=== PATIENT | male | born 1945 | race Caucasian/White ===

== ENCOUNTER 2019-06-11 15:12 | Emergency (ER) | payer MEDICARE, OTHER, SELFPAY ==
--- NOTE | ~2019-06-11 | CT_ITS ---
EXAMINATION: CT abdomen pelvis w con DATE: 06/11/2019 18:52 INDICATION: Abdominal pain TECHNIQUE: Computed tomography (CT) of the abdomen and pelvis was performed with 100 cc Omnipaque 350 intravenous contrast. The dose-length product was 554.62 mGy-cm. Automated exposure control and iter ative reconstruction technique were employed. COMPARISON: CT dated 12/29/2017 FINDINGS: Lung bases are unremarkable. Heart size normal. No significant pleural or pericardial effus ion. Moderate size hiatal hernia. There is fluid throughout the small bowel and colon. No definite ob struction. There are areas of small bowel wall enhancement. No free air or free fluid. Small subcenti meter hypodensities of the liver, most likely benign cysts or hemangiomas. The spleen, pancreas, adre nal glands are unremarkable. There are stable subcentimeter hypodensities of the kidneys, most likely benign. There is a nonobstructing 4 mm left renal stone. There is atherosclerosis of the aorta without aneurysm. Small amount of free fluid in the pelvis. Pro state gland is enlarged. Mild lumbar spondylosis. IMPRESSION: 1. Fluid-filled distended small bowel and colon, likely enterocolitis. No definite obstruction. 2: Moderate size hiatal hernia. 3: Nonobstructing left renal stone measuring 4 mm. Reviewed, dictated and finalized at location [facility]. ORT SECURITY SCREENER IMPRESSION: 1. Fluid-filled distended small bowel and colon, likely enterocolitis. No defin ite obstruction. 2: Moderate size hiatal hernia. 3: Nonobstructing left renal stone measuring 4 mm.
[2019-06-11 15:17] VITALS: BP 121/88; PULSE 78; RESP 16; TEMP 36.6; O2SAT 100
[2019-06-11 15:32] LABS: Basophils Percent Auto 0.4 % (0.2-1.2); Eosinophils Absolute Auto 0.1 K/mm3 (0-0.3); Eosinophils Percent Auto 0.9 % (0-4.4); Hematocrit 45.8 % (42.0-52.0); Hemoglobin 15.7 g/dL (14.0-18.0); Immature Granulocyte Absolute 0.04 K/mm3 (0.00-0.031); Immature Granulocyte Percent A 0.4 % (0-0.5); Lymphocytes Absolute Auto 1.32 K/mm3 (0.9-3.2); Lymphocytes Percent Auto 12.7 % (18.3-44.2); Mean Corpuscular HGB Conc 34.3 g/dl (32-36); Mean Corpuscular Hemoglobin 30.1 pg (26-34); Mean Corpuscular Volume 87.7 fl (80-100); Mean Platelet Volume 9.9 fl (7.4-10.4); Monocytes Absolute Auto 0.7 K/mm3 (0.1-0.6); Monocytes Percent Auto 6.5 % (2.6-8.5); Neutrophils Absolute Auto 8.2 K/mm3 (1.3-6.7); Neutrophils Percent Auto 79.1 % (45.5-73.1); Platelet Count Result 171 k/mm3 (150-375); Red Blood Count 5.22 M/mm3 (4.6-6.20); Red Cell Distribution Width 12.7 % (11.5-14.5); White Blood Count 10.4 K/mm3 (4.5-10.0)
[2019-06-11 15:43] LABS: Alanine Aminotransferase 21 U/L (4-50); Albumin Level 4.7 g/dL (3.5-5.1); Alkaline Phosphatase 86 U/L (38-126); Aspartate Amino Transferase 24 U/L (17-59); Bilirubin,Total 1.3 mg/dL (0.2-1.3); Blood Urea Nitrogen 16 mg/dL (9-20); Calcium 9.9 mg/dL (8.4-10.2); Carbon Dioxide 22 mmol/L (22-30); Chloride 103 mmol/L (98-107); Estimated CRCL calculation 77 ml/min; Estimated Glomerular Filt Rate > 60; Glucose 102 mg/dL (75-110); Lipase 53 U/L (23-300); Potassium 4.1 mmol/L (3.4-5.0); Sodium 139 mmol/L (137-145)
[2019-06-11 16:23] LABS: Add Urine Microscopic? NO; Appearance Urine Clear (Clear); Bilirubin Urine Negative (Negative); Blood Urine Negative (Negative); Color Urine Yellow (Yellow); Glucose Urine UA Negative (Negative); Ketones Urine Negative (Negative); Leukocyte Esterase Ur Negative LEU/UL (Negative); Nitrate Urine Negative (Negative); Protein Urine Negative (Negative); Specific Grav Ur 1.016 (1.001-1.035); Urobilinogen Urine Negative mg/dL (<2.0)
--- NOTE | 2019-06-11 17:13 | ED.ABDPAIN ---
HPI - Abdominal Pain General Chief Complaint: Abdominal Pain Stated Complaint: lower back pain and abdominal pain Time Seen by Provider: 06/11/19 17:11 Source: patient Mode of arrival: ambulatory Limitations: no limitations History of Present Illness HPI narrative: The pt is a 74 y/o male who presents to the ED c/o lower ABD pain onset 1000 today. Pt states that the pain radiated to the back. He notes that he has a PMHx of kidney stones. Pt states that he went to the bathroom here for a urine sample, and then experienced N/V, which alleviated the pain. The pain is now resolved. The pt denies constipation, diarrhea, dysuria, hematuria, and fever. Pt states that he has a PMHx of hernia x2 with two repairs performed. Pt notes that his hand presser is Dr. Ferrell. He states that he was formerly on Brilinta due to his PMHx of ND, but is now off of this medication. He notes that he last ate a meal at 2100 yesterday. MD elicited complaint: abdominal pain Pertinent past history: kidney stones Onset (ago): hour(s) (7) Pain Consistency: now resolved Location: other (Lower) Associated symptoms: nausea and vomiting Related Data Home Medications Medication Instructions Recorded Confirmed aspirin 81 mg tablet,delayed 81 mg PO DAILY 04/21/19 release atorvastatin 80 mg tablet 80 mg PO DAILY 04/21/19 carvedilol 12.5 mg tablet 12.5 mg PO BID tablet 04/21/19 doxazosin 8 mg tablet 8 mg PO DAILY 04/21/19 lisinopril 40 mg tablet 40 mg PO DAILY 04/21/19 nifedipine 30 mg tablet,extended 30 mg PO DAILY 04/21/19 release spironolactone 25 mg tablet 25 mg PO DAILY 04/21/19 Allergies Allergy/AdvReac Type Severity Reaction Status Date / Time Penicillins Allergy Unknown Unknown Verified 06/11/19 18:33 shrimp Allergy Unknown Vomiting Verified 06/11/19 18:33 Shrimp Allergy Mild Vomiting Uncoded 06/11/19 18:33 Review of Systems Review of Systems: All systems reviewed & are unremarkable except as noted in HPI and below Constitutional: Constitutional: Denies fever(s) Gastrointestinal: Gastrointestinal: Reports abdominal pain (Lower, Radiating into back, resolved), Denies constipation, Reports nausea and Reports vomiting Genitourinary: Genitourinary: Denies hematuria and Denies dysuria [facility] Past Medical History Medical History (Updated 06/11/19 @ 20:32 by Jaci Baptiste MD) Benign mole Chin, removed CAD (coronary artery disease) GERD (gastroesophageal reflux disease) Hiatal hernia x2 HLD (hyperlipidemia) HTN (hypertension) Hydrocele Kidney stone x2 Myocardial infarction Prostate nodule Surgical History Surgical History (Updated 06/11/19 @ 17:40 by Glen Prakash) History of extraction of renal calculus History of prostate surgery Nodule removal History of repair of hiatal hernia x2 Hx of cardiac cath S/P repair of hydrocele Stented coronary artery Family History Family History (Updated 01/21/19 @ 08:55 by DOCTOR UNKNOWN) Father Acute myocardial infarction Mother Family history of malignant neoplasm of ovary Other Family history of coronary artery disease Social History Social History Smoking status: Never smoker Second hand tobacco smoke exposure: No Alcohol intake: never Gender identity (if verbalized by the patient): Male Comments PCP: Dr. Manzo Cardiology: Dr. Ferrell Exam Narrative: Exam Narrative: General appearance: Well-developed, well-nourished Skin: Normal color Head: Normocephalic, nontraumatic Eyes: Clear conjunctiva ENT: Oropharynx normal, ears normal, nose normal Neck: Supple, nontender Chest and respiratory: Airway patent, no respiratory distress, no accessory muscle use Heart: Regular rate/rhythm Abdomen: Soft, nontender, no organomegaly, quiet bowel sounds Vascular: Normal peripheral pulses, normal capillary refill. Musculoskeletal: Normal range of motion, nontender back Neurologic: Alert and oriented ?3, SPECIFICATION MANAGER is normal as tested, no gross motor deficit
[2019-06-11 18:30] VITALS: BP 129/79; PULSE 67; PULSE 70; RESP 17; O2SAT 100
== END 2019-06-11 20:56 | disposition home or self-care (01) ==
PROVIDERS: Emergency Medicine; Emergency Provider Emergency Medicine; PCP Family Medicine
DX: K44.9 Diaphragmatic hernia without obstruction or gangrene (principal); I25.2 Old myocardial infarction; I25.10 Atherosclerotic heart disease of native coronary artery without angina pectoris; K21.9 Gastro-esophageal reflux disease without esophagitis; E78.5 Hyperlipidemia, unspecified; I10 Essential (primary) hypertension; Z95.5 Presence of coronary angioplasty implant and graft; N20.0 Calculus of kidney; Z87.442 Personal history of urinary calculi
CPT/HCPCS: 36415; 74177; 80053; 81003; 83690; 85025; 99284; Q9967

== ENCOUNTER 2019-12-25 18:20 | Emergency (ER) | payer MEDICARE, OTHER, SELFPAY ==
--- NOTE | ~2019-12-25 | XR_ITS ---
XR abdomen/kub 1V DATE: 12/25/2019 21:09 INDICATION: Left flank pain, nausea, vomiting. Left ureterovesical junction calculus TECHNIQUE: AP projection, 2 views COMPARISON: 12/25/[address] abdomen pelvis FINDINGS: There is a faint approximately 3 mm calcification overlying the left lower pelvis, possibly corresponding to the left are visible junction calculus demonstrated on the 12/25/[address] abdomen pelvis. Nonspecific bowel gas pattern without evidence of obstruction. Status post right inguinal herniorrhaphy. Diffuse osteopenia. IMPRESSION: Probable faintly calcified left ureterovesical junction approximately 3 mm calcified calc ulus Reviewed, dictated and finalized at [facility]. Reviewed, dictated and finalized at location [facility]. IMPRESSION: Probable faintly calcified left ureterovesical junction approximate ly 3 mm calcified calculus
--- NOTE | ~2019-12-25 | CT_ITS ---
EXAMINATION: CT abdomen pelvis wo con DATE: 12/25/2019 20:58 INDICATION: Left flank pain TECHNIQUE: Computed tomography (CT) of the abdomen and pelvis was performed without intravenous contr ast. Automated exposure control and iterative reconstruction technique were employed. Exam dose: 463 .83 mGy-cm total exam DLP. COMPARISON: 06/11/[address] abdomen pelvis FINDINGS: There is discoid atelectasis and/or scarring in the lower lung zones. Borderline heart size. Coronary artery extensive calcifications. No pericardial or pleural effusion. Moderate hiatal hernia. Scattered hepatic cysts measuring up to approximately 1.5 cm maximal dimensio n are again noted. The gallbladder is present. Normal splenic size. No bile duct or pancreatic duct d ilatation. No pancreatic mass lesion or calcification. No adrenal mass lesion. No right renal mass lesion. No right urinary tract calculus or hydroureterone phrosis. There is an approximately 4 mm left ureterovesical junction calculus with mild left hydroureteronephr osis. There is perinephric stranding. There are several pinpoint lower pole nonobstructing left renal calculi. Moderate prostate enlargement. There is atherosclerotic calcification but no aneurysm of the abdominal aorta. There is calcification of the celiac and superior mesenteric and renal arteries as well as iliac arteries. No intraperitone al or retroperitoneal or pelvic mass lesion or adenopathy or ascites. Unremarkable appendix. Status post right inguinal herniorrhaphy. Diverticulosis of the colon; no CT evidence of diverticulitis. No bowel obstruction, bowel wall thick ening, pneumatosis or intraperitoneal free air. Prominent degenerative disease and approximately 3.6 mm retrolisthesis at L5-S1. 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 IMPRESSION: 4 mm left ureterovesical junction obstructing calculus with mild proximal left hydrouret eronephrosis Nonobstructing lower pole left nephrolithiasis Moderate hiatal hernia Hepatic cysts Extensive coronary artery calcifications Reviewed, dictated and finalized at [facility]. Reviewed, dictated and finalized at [facility]. IMPRESSION: 4 mm left ureterovesical junction obstructing calculus with mild p roximal left hydroureteronephrosis Nonobstructing lower pole left nephrolithiasis Moderate hiatal hernia Hepatic cysts Extensive coronary artery calcifications
[2019-12-25 19:10] VITALS: BP 142/108; PULSE 95; RESP 18; TEMP 37; O2SAT 98
[2019-12-25 19:25] LABS: Basophils Percent Auto 0.1 % (0.2-1.2); Hemoglobin 13.5 g/dL (14.0-18.0); Immature Granulocyte Absolute 0.03 K/mm3 (0.00-0.031); Immature Granulocyte Percent A 0.3 % (0-0.5); Lymphocytes Absolute Auto 0.49 K/mm3 (0.9-3.2); Lymphocytes Percent Auto 4.4 % (18.3-44.2); Mean Corpuscular HGB Conc 34.6 g/dl (32-36); Mean Corpuscular Hemoglobin 30.5 pg (26-34); Mean Platelet Volume 9.5 fl (7.4-10.4); Monocytes Absolute Auto 0.7 K/mm3 (0.1-0.6); Monocytes Percent Auto 6.5 % (2.6-8.5); Neutrophils Absolute Auto 9.9 K/mm3 (1.3-6.7); Neutrophils Percent Auto 88.7 % (45.5-73.1); Platelet Count Result 142 k/mm3 (150-375); Red Blood Count 4.43 M/mm3 (4.6-6.20); Red Cell Distribution Width 12.8 % (11.5-14.5); White Blood Count 11.2 K/mm3 (4.5-10.0)
[2019-12-25 19:37] LABS: Anion Gap 7 mmol/L (8-16); Blood Urea Nitrogen 19 mg/dL (9-20); Carbon Dioxide 23 mmol/L (22-30); Chloride 110 mmol/L (98-107); Estimated CRCL calculation 54 ml/min; Estimated Glomerular Filt Rate 54; Glucose 142 mg/dL (75-110); Potassium 3.8 mmol/L (3.4-5.0); Sodium 140 mmol/L (137-145)
--- NOTE | 2019-12-25 20:14 | ED.ABDPAIN ---
HPI - Abdominal Pain General Chief Complaint: Abdominal Pain Stated Complaint: abd/flank pain Time Seen by Provider: 12/25/19 19:51 Source: patient Mode of arrival: ambulatory Limitations: no limitations History of Present Illness HPI narrative: This patient is a 74 year old male who presents for evaluation of left flank pain starting last night around 10 pm. He has had kidney stones in the past and this pain feels similar. He reports severe pain that radiated around left lower abdomen. He had associated nausea and vomiting last night and this morning. His pain has improved to 2/10. He reports mild dysuria. He denies fever or chills. He has not taken any medication for his pain today His urologist is Dr. Green Related Data Home Medications Medication Instructions Recorded Confirmed aspirin 81 mg tablet,delayed 81 mg PO DAILY 04/21/19 release atorvastatin 80 mg tablet 80 mg PO DAILY 04/21/19 carvedilol 12.5 mg tablet 12.5 mg PO BID tablet 04/21/19 doxazosin 8 mg tablet 8 mg PO DAILY 04/21/19 lisinopril 40 mg tablet 40 mg PO DAILY 04/21/19 nifedipine 30 mg tablet,extended 30 mg PO DAILY 04/21/19 release spironolactone 25 mg tablet 25 mg PO DAILY 04/21/19 Allergies Allergy/AdvReac Type Severity Reaction Status Date / Time Penicillins Allergy Unknown Unknown Verified 12/25/19 20:34 shrimp Allergy Unknown Vomiting Verified 12/25/19 20:34 Shrimp Allergy Mild Vomiting Uncoded 12/25/19 20:34 Review of Systems Review of Systems: All systems reviewed & are unremarkable except as noted in HPI and below Constitutional: Constitutional: Denies chills and Denies fever(s) Gastrointestinal: Gastrointestinal: Reports abdominal pain, Denies diarrhea, Reports nausea and Reports vomiting Genitourinary: Genitourinary: Denies hematuria and Denies oliguria Musculoskeletal: Musculoskeletal: Reports back pain PMFSH Past Medical History Medical History Benign mole Chin, removed CAD (coronary artery disease) GERD (gastroesophageal reflux disease) Hiatal hernia x2 HLD (hyperlipidemia) HTN (hypertension) Hydrocele Kidney stone x2 Myocardial infarction Prostate nodule Surgical History Surgical History History of extraction of renal calculus History of prostate surgery Nodule removal History of repair of hiatal hernia x2 Hx of cardiac cath S/P repair of hydrocele Stented coronary artery Family History Family History (Updated 01/21/19 @ 08:55 by DOCTOR UNKNOWN) Father Acute myocardial infarction Mother Family history of malignant neoplasm of ovary Other Family history of coronary artery disease Social History Social History Smoking status: Never smoker Second hand tobacco smoke exposure: No Alcohol intake: never Gender identity (if verbalized by the patient): Male Exam Const: General: alert Orientation/consciousness: patient oriented x3 HENMT: Head: normocephalic and atraumatic Face and sinus: face symmetric Mouth: Yes Normal oral and palatal mucosa present and Yes oropharynx normal Eyes: Pupils: Equal, round and reactive pupils present EOM: EOMs intact bilaterally Chest: Chest palpation & inspection: normal inspection of the chest Resp: Effort & Inspection: normal respiratory effort, no retractions and no use of accessory muscles Auscultation: clear to auscultation bilaterally Cardio: Rate: regular rate Rhythm: regular rhythm Heart sounds: no murmurs GI: GI Palp: Yes Soft to palpation, No Tenderness to palpation present (GI), No Guarding due to palpation present (GI) and No Rigid due to palpation : General: Yes no CVA tenderness Skin: General skin exam: normal color Rashes: no rashes Course Reevaluation(s) Reevaluation #1: I discussed with patient Ct results. He has no complaints and he is comfortable with discharge. Date: 12/25/19
[2019-12-25] MEDS: ONDANSETRON INJ 4 MG/2 ML VIAL IV PUSH (20:34)
[2019-12-25] MEDS: LACTATED RINGERS 1,000 ML 999 ML IV CONT (20:34)
[2019-12-25 20:48] LABS: Add Urine Microscopic? YES; Appearance Urine Cloudy (Clear); Bacteria Urine 1+ /hpf; Bilirubin Urine Negative (Negative); Blood Urine 3+ (Negative); Color Urine Red (Yellow); Glucose Urine UA 1+ mg/dL (Negative); Ketones Urine 1+ mg/dL (Negative); Leukocyte Esterase Ur Trace LEU/UL (Negative); Mucus Urine Moderate /lpf; Nitrate Urine Negative (Negative); Protein Urine 2+ mg/dL (Negative); RBC Urine >75 /hpf (0-2); Specific Grav Ur 1.025 (1.001-1.035); Urobilinogen Urine Negative mg/dL (<2.0)
[2019-12-25] MEDS: TAMSULOSIN HCL 0.4 MG CAPSULE PO (21:51)
[2019-12-25 22:38] VITALS: BP 139/91; PULSE 87; RESP 16; TEMP 36.6; O2SAT 100
== END 2019-12-25 22:40 | disposition home or self-care (01) ==
PROVIDERS: Emergency Provider General Practice; PCP Family Medicine
DX: N13.2 Hydronephrosis with renal and ureteral calculous obstruction (principal); N39.0 Urinary tract infection, site not specified; I25.10 Atherosclerotic heart disease of native coronary artery without angina pectoris; K21.9 Gastro-esophageal reflux disease without esophagitis; E78.5 Hyperlipidemia, unspecified; I10 Essential (primary) hypertension; I25.2 Old myocardial infarction; Z87.442 Personal history of urinary calculi; Z95.5 Presence of coronary angioplasty implant and graft; Z79.82 Long term (current) use of aspirin
CPT/HCPCS: 36415; 74018; 74176; 80048; 81001; 85025; 87077; 87086; 87088; 87186; 96361; 96365; 96375; 99284; A9270; J0131; J2405; J7120

== ENCOUNTER 2022-05-13 11:21 | Emergency (ER) | payer MEDICARE, OTHER, SELFPAY ==
--- NOTE | ~2022-05-13 | CT_ITS ---
EXAMINATION: CT abdomen pelvis wo con DATE: 05/13/2022 13:14 INDICATION: Left flank pain. TECHNIQUE: Computed tomography (CT) of the abdomen and pelvis was performed without intravenous contr ast. Automated exposure control and iterative reconstruction technique were employed. The dose-length product was 279.40 mGy-cm. COMPARISON: CT abdomen and pelvis 12/25/2019 FINDINGS: The visualized portions of the lung bases demonstrate mild atelectasis. There is mild scarr ing in paraspinal right lower lobe. No pleural effusion. The heart size is normal. There are coronary artery calcifications. There are calcifications of aortic valve. No pericardial effusion. There is a moderate-sized sliding hiatal hernia. There are cysts in the liver measuring up to 1.9 cm. The gallb ladder and spleen are normal. The pancreas and adrenal glands are normal. There is a 2 mm stone in ri ght kidney. There are 4 stones in left kidney measuring up to 4 mm. There is mild left hydronephrosis and hydroureter. There is a 4 mm stone in distal left ureter. There is asymmetric edema around left kidney. The prostate is moderately enlarged. There is diverticulosis of the colon without evidence of diverticulitis. There are no dilated loops of bowel. The appendix is normal. There are no pathologic ally enlarged lymph nodes. There is no free intraperitoneal fluid. There are changes of right inguina l hernia repair. There is severe lower lumbar spondylosis. IMPRESSION: 1. 4 mm stone in distal left ureter with mild left hydronephrosis and hydroureter. 2. Bilateral nonobstructing kidney stones. 3. Moderate-sized sliding hiatal hernia. Reviewed, dictated and finalized at location [facility]. LE DIRECTOR IMPRESSION: 1. 4 mm stone in distal left ureter with mild left hydronephrosis and hydrouret er. 2. Bilateral nonobstructing kidney stones. 3. Moderate-sized sliding hiatal hernia.
[2022-05-13 12:12] VITALS: BP 185/135; PULSE 84; RESP 18; TEMP 36.9; O2SAT 97
[2022-05-13 12:33] LABS: Basophils Percent Auto 0.3 % (0.2-1.2); Eosinophils Percent Auto 0.1 % (0-4.4); Hematocrit 42.4 % (42.0-52.0); Hemoglobin 14.6 g/dL (14.0-18.0); Immature Granulocyte Absolute 0.02 K/mm3 (0.00-0.031); Immature Granulocyte Percent A 0.2 % (0-0.5); Lymphocytes Absolute Auto 0.85 K/mm3 (0.9-3.2); Lymphocytes Percent Auto 9.7 % (18.3-44.2); Mean Corpuscular HGB Conc 34.4 g/dl (32-36); Mean Corpuscular Hemoglobin 30.4 pg (26-34); Mean Corpuscular Volume 88.3 fl (80-100); Mean Platelet Volume 9.6 fl (7.4-10.4); Monocytes Absolute Auto 0.5 K/mm3 (0.1-0.6); Monocytes Percent Auto 5.3 % (2.6-8.5); Neutrophils Absolute Auto 7.4 K/mm3 (1.3-6.7); Neutrophils Percent Auto 84.4 % (45.5-73.1); Platelet Count Result 151 k/mm3 (150-375); White Blood Count 8.7 K/mm3 (4.5-10.0)
[2022-05-13 12:40] LABS: Appearance Urine Clear (Clear); Bilirubin Urine Negative (Negative); Blood Urine 3+ (Negative); Color Urine Yellow (Yellow); Glucose Urine UA Negative (Negative); Ketones Urine Trace mg/dL (Negative); Leukocyte Esterase Ur Negative LEU/UL (Negative); Nitrate Urine Negative (Negative); Protein Urine 1+ mg/dL (Negative); Specific Grav Ur 1.025 (1.001-1.035); Urobilinogen Urine 0.2 mg/dL (<2.0); pH Urine 5.5 (5.0-9.0)
[2022-05-13 12:42] LABS: Alanine Aminotransferase 27 U/L (6-50); Albumin Level 4.3 g/dL (3.5-5.1); Alkaline Phosphatase 87 U/L (38-126); Anion Gap 6 mmol/L (8-16); Aspartate Amino Transferase 26 U/L (17-59); Bilirubin,Total 1.3 mg/dL (0.2-1.3); Blood Urea Nitrogen 15 mg/dL (9-20); Calcium 9.1 mg/dL (8.4-10.2); Carbon Dioxide 24 mmol/L (22-30); Chloride 113 mmol/L (98-107); Estimated CRCL calculation 52 ml/min; Estimated Glomerular Filt Rate 54; Glucose 125 mg/dL (65-110); Sodium 143 mmol/L (137-145)
--- NOTE | 2022-05-13 12:51 | ED.ABDPAIN ---
HPI - Abdominal Pain General Chief Complaint: Abdominal Pain Stated Complaint: back pain, n/v Time Seen by Provider: 05/13/22 12:03 History of Present Illness HPI narrative: Patient is a 77-year-old male with a history of hypertension, hyperlipidemia, GERD presenting with left flank pain. Patient states that he awoke around 5 this morning with severe left flank pain. States that it feels like prior episodes of kidney stones. States that the pain has been persistent since this morning and he then developed numerous episodes of emesis around 8 AM. States that he was able to have a small bowel movement which did not improve the pain. States he was able to urinate a small amount after the pain started. No hematuria or dysuria. No fevers or chills, headache, chest pain, shortness of breath, diarrhea, leg swelling. Related Data Home Medications Medication Instructions Recorded Confirmed aspirin 81 mg tablet,delayed 81 mg PO DAILY 04/21/19 release (Aspir-Low) atorvastatin 80 mg tablet 80 mg PO DAILY 04/21/19 carvedilol 12.5 mg tablet 12.5 mg PO BID 04/21/19 lisinopril 40 mg tablet 40 mg PO DAILY 04/21/19 nifedipine 30 mg tablet,extended 30 mg PO DAILY 04/21/19 release spironolactone 25 mg tablet 25 mg PO DAILY 04/21/19 Allergies Allergy/AdvReac Type Severity Reaction Status Date / Time Penicillins Allergy Unknown Unknown Verified 05/13/22 12:22 shrimp Allergy Unknown Vomiting Verified 05/13/22 12:22 Review of Systems Review of Systems: All systems reviewed & are unremarkable except as noted in HPI and below PMFSH Past Medical History Medical History (Updated 05/14/22 @ 00:04 by Dariela Tee) Benign mole Chin, removed CAD (coronary artery disease) GERD (gastroesophageal reflux disease) Hiatal hernia x2 HLD (hyperlipidemia) HTN (hypertension) Hydrocele Kidney stone x2 Myocardial infarction Prostate nodule Surgical History Surgical History History of extraction of renal calculus History of prostate surgery Nodule removal History of repair of hiatal hernia x2 Hx of cardiac cath S/P repair of hydrocele Stented coronary artery Family History Family History Father Acute myocardial infarction Mother Family history of malignant neoplasm of ovary Other Family history of coronary artery disease Social History Social History Smoking status: Never smoker Second hand tobacco smoke exposure: No Alcohol intake: never Gender identity (if verbalized by the patient): Male Exam Narrative: GENERAL: Uncomfortable appearing male lying in bed HEAD: Normocephalic, atraumatic. EYES: PERRLA and EOMI. ENT: Nares clear, no rhinorrhea or epistaxis. Mucous membranes moist. NECK: Supple. CHEST: Clear to auscultation. No respiratory distress. HEART: Regular rate and rhythm. ABDOMEN: Soft, nontender, nondistended EXTREMITIES: Normal range of motion. No edema. SKIN: Warm, dry, no rash. NEURO: No focal deficits. Alert and oriented x3. PSYCH: Normal mood and affect. Course Vital Signs Vital signs: Vital Signs Temperature 98.4 F 05/13/22 12:12 Pulse Rate 84 05/13/22 12:12 Respiratory Rate 18 05/13/22 12:12 Blood Pressure 185/135 H 05/13/22 12:12 Pulse Oximetry 97 05/13/22 12:12 Oxygen Delivery Room Air 05/13/22 12:12 Temperature 98.4 F 05/13/22 12:12 Pulse Rate 89 05/13/22 15:26 Respiratory Rate 18 05/13/22 15:26 Blood Pressure 149/93 H 05/13/22 15:26 Pulse Oximetry 97 05/13/22 15:26 Oxygen Delivery Room Air 05/13/22 12:12 MDM - Abdominal Pain MDM Narrative Medical decision making narrative: Patient is a 77-year-old male presenting with left flank pain and emesis. Patient is hypertensive, his vitals are within normal limits. Exam is remarkable for the above. B
[2022-05-13 12:56] LABS: Mucus Urine Rare /lpf; RBC Urine 51-75 /hpf (0-2); Squamous Epithelial Cell Urine Rare /hpf (Few)
[2022-05-13 12:57] LABS: Add Urine Microscopic? YES
[2022-05-13] MEDS: HYDROmorphone HCL INJ (*CRX) 1 MG/ML SYR 0.5 MG IV PUSH (13:21)
[2022-05-13] MEDS: SODIUM CHLORIDE 0.9% IV 1,000 ML 999 ML IV CONT (13:21)
[2022-05-13] MEDS: ONDANSETRON INJ 4 MG/2 ML VIAL IV PUSH (13:21)
[2022-05-13 14:01] VITALS: BP 135/79; PULSE 71; RESP 12; O2SAT 94
[2022-05-13 15:26] VITALS: BP 149/93; PULSE 89; RESP 18; O2SAT 97
[2022-05-13] MEDS: HYDROcodone/acetaminophen (*CRX) 5-325 MG TABLET 1 TAB PO (15:30)
== END 2022-05-13 15:57 | disposition home or self-care (01) ==
PROVIDERS: Emergency Provider Emergency Medicine
DX: N13.2 Hydronephrosis with renal and ureteral calculous obstruction (principal); E78.5 Hyperlipidemia, unspecified; I10 Essential (primary) hypertension; I25.10 Atherosclerotic heart disease of native coronary artery without angina pectoris; I25.2 Old myocardial infarction; K21.9 Gastro-esophageal reflux disease without esophagitis; Z95.5 Presence of coronary angioplasty implant and graft; Z87.442 Personal history of urinary calculi; Z79.82 Long term (current) use of aspirin; K44.9 Diaphragmatic hernia without obstruction or gangrene
CPT/HCPCS: 36415; 74176; 80053; 81001; 85025; 85055; 96361; 96365; 96375; 99284; A9270; J0131; J1170; J2405; J7030

== ENCOUNTER 2023-06-06 18:10 | Emergency (ER) | payer MEDICARE, OTHER, SELFPAY ==
--- NOTE | ~2023-06-06 | CT_ITS ---
EXAMINATION: CT abdomen pelvis wo con DATE: 06/06/2023 19:39 INDICATION: Nephrolithiasis presenting with left flank pain TECHNIQUE: Computed tomography (CT) of the abdomen and pelvis was performed without intravenous contr ast. Automated exposure control and iterative reconstruction technique were employed. The dose-length product was 247.44 mGy-cm. COMPARISON: 05/13/2022 FINDINGS: Mild discoid atelectasis at the bilateral lung bases and mild paravertebral scarring at the medial ri ght lung base.. Heart size is normal. Atherosclerotic coronary artery calcific lesion and aortic valv e calcific lesion. No pericardial or pleural effusion. Moderate-sized sliding-type hiatal hernia. A c ouple cysts in the left hepatic lobe the larger measuring 1.7 cm. Gallbladder, spleen, pancreas and b ilateral adrenal glands are normal. Unchanged 2 mm right renal stone. 3 unchanged stones measuring up to 2 mm in the lower pole of the left kidney. The 4 mm stone previously seen in the left kidney is n ow seen in the distalmost left ureter approximately 1.5 cm from the ureterovesicular junction with mi ld left hydroureteronephrosis with perinephric and perirenal stranding. Mild sigmoid diverticulosis w ithout adjacent inflammatory stranding to suggest diverticulitis. Small bowel and appendix are normal . Prostatomegaly. Bladder is unremarkable. Postoperative change of prior right inguinal hernia repair . No free intraperitoneal gas or fluid. No pathologically enlarged abdominal or pelvic lymphadenopath y. Severe lumbosacral spondylosis with mild spondylosis more cephalad lumbar and lower thoracic spine . IMPRESSION: 1. Bilateral nephrolithiasis with 4 mm obstructing stone at the distalmost left ureter with mild left hydroureteronephrosis. 2. Moderate-sized sliding-type hiatal hernia. Reviewed, dictated and finalized at location A. DING RENTAL MANAGER
[2023-06-06 18:37] VITALS: BP 154/109; PULSE 85; RESP 20; TEMP 36.7; O2SAT 99
[2023-06-06 19:09] LABS: Basophils Percent Auto 0.3 % (0.2-1.2); Eosinophils Percent Auto 0.1 % (0-4.4); Hematocrit 41.4 % (42.0-52.0); Hemoglobin 14.5 g/dL (14.0-18.0); Immature Granulocyte Absolute 0.02 K/mm3 (0.00-0.031); Immature Granulocyte Percent A 0.2 % (0-0.5); Immature Platelet Fraction Pct 2.2 % (0.9-11.2); Lymphocytes Absolute Auto 0.55 K/mm3 (0.9-3.2); Lymphocytes Percent Auto 6.4 % (18.3-44.2); Mean Corpuscular Hemoglobin 30.9 pg (26-34); Mean Corpuscular Volume 88.1 fl (80-100); Mean Platelet Volume 9.7 fl (7.4-10.4); Monocytes Absolute Auto 0.6 K/mm3 (0.1-0.6); Monocytes Percent Auto 6.5 % (2.6-8.5); Neutrophils Absolute Auto 7.4 K/mm3 (1.3-6.7); Neutrophils Percent Auto 86.5 % (45.5-73.1); Platelet Count Result 154 k/mm3 (150-375); Red Cell Distribution Width 12.8 % (11.5-14.5); White Blood Count 8.6 K/mm3 (4.5-10.0)
[2023-06-06 19:26] VITALS: BP 157/96; PULSE 86; RESP 14; TEMP 36.8; O2SAT 98
--- NOTE | 2023-06-06 19:34 | ED.ABDPAIN ---
HPI - Abdominal Pain General Chief Complaint: Abdominal Pain Stated Complaint: Flank pain Time Seen by Provider: 06/06/23 19:14 Source: patient and family Limitations: no limitations History of Present Illness HPI narrative: Patient is a 78-year-old male presents to the emergency department accompanied by his family for kidney stone . Patient states he has a history kidney stones and this feels like his history of stone. Patient states around 10:30 a.m. this morning he developed some left-sided flank pressure that radiates to his left groin, feels like his history kidney stone, constant, has not noticed anything making the pain better or worse, to try to Tylenol so without any significant relief, notes that he maybe had a couple bouts of similar pain over the past couple days. Patient admits to decreased urine output as a has not urinated much sense this morning. Patient admits to history of enlarged prostate but was not having any issues with urination prior to today. Patient denies any discomfort when he pees, recent injuries, numbness, weakness, chest pain, diarrhea. Patient admits to a couple episodes of nonbloody nonbilious emesis with nausea but denies any nausea currently. Patient denies fever. Patient admits to seeing a urologist in the past. Patient denies any history of lithotripsy or ureteral stents. Related Data Home Medications Medication Instructions Recorded Confirmed aspirin 81 mg tablet,delayed 81 mg PO DAILY 04/21/19 release (Aspir-Low) atorvastatin 80 mg tablet 80 mg PO DAILY 04/21/19 carvedilol 12.5 mg tablet 12.5 mg PO BID 04/21/19 lisinopril 40 mg tablet 40 mg PO DAILY 04/21/19 nifedipine 30 mg tablet,extended 30 mg PO DAILY 04/21/19 release spironolactone 25 mg tablet 25 mg PO DAILY 04/21/19 Allergies Allergy/AdvReac Type Severity Reaction Status Date / Time Penicillins Allergy Unknown Unknown Verified 06/06/23 19:03 shrimp Allergy Unknown Vomiting Verified 06/06/23 19:03 Review of Systems Review of Systems: A 10 system review of systems was completed on the patient and is negative except for what is stated in the HPI. Nursing and ancillary documentation was reviewed. [facility] Past Medical History Medical History (Updated 06/06/23 @ 21:26 by Eric Lanier DO) Benign mole Chin, removed CAD (coronary artery disease) GERD (gastroesophageal reflux disease) Hiatal hernia x2 HLD (hyperlipidemia) HTN (hypertension) Hydrocele Kidney stone x2 Myocardial infarction Prostate nodule Surgical History Surgical History History of extraction of renal calculus History of prostate surgery Nodule removal History of repair of hiatal hernia x2 Hx of cardiac cath S/P repair of hydrocele Stented coronary artery Family History Family History Father Acute myocardial infarction Mother Family history of malignant neoplasm of ovary Other Family history of coronary artery disease Social History Social History Smoking status: Never smoker Second hand tobacco smoke exposure: No Alcohol intake: never Gender identity (if verbalized by the patient): Male Comments At time of signature, I have reviewed and agree with nursing past medical, surgical, social and family history unless otherwise noted. Please see the nursing chart for further information. There is no relevant family history pertinent to the presenting complaint. Exam Narrative: CONST: No acute distress. Well nourished. HENMT: Head is normocephalic and atraumatic. Tacky mucous membranes. No posterior oropharynx erythema. EYES: No conjunctival icterus, injection, or pallor. PERRL. NECK: No meningeal signs. RESP: Able to speak in full sentences. Normal respiratory effort. CTAB. CARDIO: Regular rate. Regular rhythm. 2+ DP and
[2023-06-06 19:40] LABS: Alanine Aminotransferase 24 U/L (6-50); Albumin Level 4.3 g/dL (3.5-5.1); Alkaline Phosphatase 85 U/L (38-126); Anion Gap 10 mmol/L (8-16); Aspartate Amino Transferase 30 U/L (17-59); Bilirubin,Total 1.5 mg/dL (0.2-1.3); Blood Urea Nitrogen 16 mg/dL (9-20); Calcium 9.7 mg/dL (8.4-10.2); Carbon Dioxide 22 mmol/L (22-30); Chloride 109 mmol/L (98-107); Estimated CRCL calculation 55 ml/min; Estimated Glomerular Filt Rate 59; Glucose 119 mg/dL (65-110); Lipase 48 U/L (23-300); Potassium 4.1 mmol/L (3.4-5.0); Sodium 141 mmol/L (137-145)
[2023-06-06] MEDS: SODIUM CHLORIDE 0.9% IV 1,000 ML 999 ML IV CONT (19:51)
[2023-06-06] MEDS: ONDANSETRON INJ 4 MG/2 ML VIAL IV PUSH (19:52)
[2023-06-06] MEDS: MORPHINE SULFATE (*CRX) 4 MG/ML INJ 2 MG IV PUSH (19:53)
--- NOTE | 2023-06-06 19:57 | PC.NURSE ---
Patient stated he would like to wait till after his 1L NS has infused to try to urinate and if not successful then straight catheter.
[2023-06-06] MEDS: KETOROLAC 15 MG/ML VIAL (*BKC) IV PUSH (20:16)
[2023-06-06] MEDS: TAMSULOSIN HCL 0.4 MG CAPSULE PO (20:17)
--- NOTE | 2023-06-06 20:36 | PC.NURSE ---
Patient was able to urinate on his own for UA
[2023-06-06 20:47] VITALS: BP 130/85; PULSE 90; RESP 16; O2SAT 97
[2023-06-06 20:53] LABS: Appearance Urine Clear (Clear); Bacteria Urine None Seen /hpf; Bilirubin Urine Negative (Negative); Blood Urine 2+ (Negative); Color Urine Yellow (Yellow); Glucose Urine UA Negative (Negative); Ketones Urine 2+ mg/dL (Negative); Leukocyte Esterase Ur Negative LEU/UL (Negative); Nitrate Urine Negative (Negative); Non Pathogenic Casts 0-2; Protein Urine Negative (Negative); RBC Urine 21-50 /hpf (0-2); Specific Grav Ur 1.025 (1.001-1.035); Squamous Epithelial Cell Urine None seen /hpf (Few); WBC Urine 0-5 /hpf
[2023-06-06 21:01] LABS: Add Urine Microscopic? YES
== END 2023-06-06 21:40 | disposition home or self-care (01) ==
PROVIDERS: Emergency Medicine; Emergency Provider Student in an Organized Health Care Education/Training Program
DX: N13.2 Hydronephrosis with renal and ureteral calculous obstruction (principal); I25.10 Atherosclerotic heart disease of native coronary artery without angina pectoris; I10 Essential (primary) hypertension; I25.2 Old myocardial infarction; E78.5 Hyperlipidemia, unspecified; K21.9 Gastro-esophageal reflux disease without esophagitis; Z95.5 Presence of coronary angioplasty implant and graft; Z87.442 Personal history of urinary calculi; Z79.82 Long term (current) use of aspirin
CPT/HCPCS: 36415; 74176; 80053; 81001; 83690; 85025; 85055; 96361; 96374; 96375; 99284; A9270; J1885; J2270; J2405; J7030

== ENCOUNTER 2024-11-11 10:33 | Outpatient (CLI) | payer MEDICARE, OTHER, SELFPAY ==
--- OUTSIDE RECORDS SUMMARY | 2024-11-11 10:43 | XMS_ITS | Referral Summary ---
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 (HCC) (Primary Dx); History of ST elevation myocardial infarction; Status post angioplasty with stent; Moderate aortic stenosis; Essential hypertension 11/08/2024 Results Follow-Up [facility] [address] [place] [address] [place] [phone] Kenney Subramanian MD Transthoracic Echo (TTE) Complete W Doppler/CF 11/04/2024 9:15 AM CDT Ancillary Procedure [facility] [address] [place] [address] [address] [place] [address] Moderate aortic stenosis 11/03/2024 Telephone [facility] [address] [place] [address] [address] [place] [phone] Kenney Subramanian MD from Last 3 Months Allergies Active Allergy Reactions Criticality Noted Date Comments Penicillins Medications omeprazole (PriLOSEC) 40 mg capsule take 1 capsule by oral route every day before a meal 0 0 03/22/2015 Active aspirin (ASPIR-81) 81 mg tablet take 1 tablet by oral route every day 0 0 03/22/2015 Active doxazosin (CARDURA) 8 mg tablet take 1 tablet by oral route every day 0 0 03/22/2015 Active fluconazole (DIFLUCAN) 150 mg tablet For toe nail fungus 01/09/2021 Active carvediloL (COREG) 6.25 mg tablet Take 1 tablet (6.25 mg total) by mouth 2 (two) times a day with meals 180 tablet 3 03/07/2022 Active atorvastatin (LIPITOR) 80 mg tablet TAKE 1 TABLET BY MOUTH EVERY DAY 90 tablet 1 08/13/2022 Active lisinopriL (PRINIVIL,ZESTR IL) 40 mg tablet TAKE 1 TABLET BY MOUTH EVERY DAY 90 tablet 1 08/13/2022 Active spironolactone (ALDACTONE) 25 mg tablet Take 1 tablet (25 mg total) by mouth daily 02/07/2023 Active loratadine (CLARITIN) 10 mg tablet Take 1 tablet (10 mg total) by mouth daily 01/01/2023 Active nitroglycerin (NITROSTAT) 0.[address] 1 tablet (0.4 mg total) under the tongue every 5 (five) minutes as needed for chest pain May repeat dose q 5 min, up to 3 doses total 90 tablet 3 11/11/2024 Active Active Problems Problem Noted Date Diagnosed Date Coronary artery disease invo lving algaaciq coronary artery of algaaciq heart with unstable angina pectoris 11/11/[address] elevation myocardial infarction Social History Tobacco Use Types Packs/Day Years Used Date Smoking Tobacco: Never Smokeless Tobacco: Never Tobacco Cessation:Counseling Given: Not Answered Alcohol Use Standard Drinks/Week Comments No 0 (1 standard drink = 0.6 oz pur e alcohol) Sex and Gender Information Value Date Recorded Sex Assigned at Not on file Legal Sex Male 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 Gender Identity Not on file Sexual Orientation Not on file Last Filed Vital Signs Vital Sign Reading Time Taken Comments Blood Pressure 124/80 11/11/2024 9:43 AM CDT Pulse 58 11/11/2024 9:43 AM CDT Temperature - - Respiratory Rate 15 02/24/2020 9:11 AM MIDDLE SCHOOL GUIDANCE COUNSELOR Oxygen Saturation 98% 11/11/2024 9:43 AM CDT Inhaled Oxygen Concentration - - Weight 97.1 kg (214 lb) 11/11/2024 9:43 AM CDT Height 190.5 cm (6' 3) 11/11/2024 9:43 AM CDT Body Mass Index 26.75 11/11/2024 9:43 AM CDT Plan of Treatment Upcoming Encounters Date Type Department Care Team (Latest Contact Info) Description 11/16/2024 2:00 PM CDT Hospital Encounter [facility] Cardiac Catheterization Lab [address] [place] [address] Kenney Subramanian MD [address] [place] [address] 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 (HCC); History of ST elevation myocardial infarction 11/16/2024 2:00 PM CDT - 11/16/2024 3:30 PM CDT Surgery [facility]atheter[facility] [address] [place] [address] Kenney Subramanian MD [address] [place] [address] LEFT HEART CATHETERIZATION WITH CORONARY ANGIOGRAPHY AND WITH OR WITHOUT LEFT VENTRICULOGRAM [id number] Procedures Procedure Name Priority Date/Time Associated Diagnosis Comments TRANSTHORACIC ECHO (TTE) COMPLETE W DOPPLER/CF WO CONTRAST Routine 11/04/2024 10:39 AM CDT Moderate aortic stenosis from Last 3 Months Results * TRANSTHORACIC ECHO (TTE) COMPLETE W DOPPLER/CF WO CONTRAST (11/04/2024 10:39 AM CDT) EF Mod BP 50 % CONS SCIMAGE Anatomical Region Laterality Modality Ultrasound 11/04/2024 9:22 AM CDT Narrative 11/04/2024 4:05 PM CDT [facility] Cardiology [address], [place] [address] [address] [facility] [address], [place] [address] P:[phone] P:[phone] Echocardiographic Report Patient Name: ALFREDO KIM F : 1945 Study Date: 11/04/2024 9:22:22 AM Gender: M Housekeeper Caregiver: Sarah Jimenez)(CT), [facility] [place] Location: [facility] Provider: KENNEY SUBRAMANIAN Height(Cm): 190 BSA: 2.24 Weight(Kg): 95.3 Heart Rate: 64 BP: 122 / 80 Quality: Good Order Provider: KENNEY SUBRAMANIAN PROCEDURES: Echocardiographic Report: Transthoracic echocardiogram with complete 2D, M-Mode, and color Doppler examination. With Strain Analysis. INDICATIONS: I35.0 Nonrheumatic aortic (valve) stenosis. MEASUREMENTS: 2D/MM Value Range Doppler Value Range EF Mod BP 50 % [ 52 - 72 ] LIYA Vmax 1.21 cm2 [ 2.00 - 4.00 ] LV GLS -13.77 % AV Mean PG 22 mmHg LVIDd 2D 4.59 cm [ 4.20 - 5.80 ] AV Peak Raghu 3.03 m/s [ 1.00 - 1.70 ] LVIDs 2D 3.45 cm [ 2.50 - 4.00 ] AV Peak PG 37 mmHg LVPWd 2D 0.97 cm [ 0.60 - 1.00 ] AV VTI 70.92 cm IVSd 2D 1.02 cm [ 0.60 - 1.00 ] LVOT Diam 2.14 cm [ 1.70 - 2.10 ] AoR Diam 2D 3.78 cm [ 3.10 - 3.70 ] LVOT Peak Raghu 1.02 m/s [ 0.70 - 1.10 ] LA Volume 66.65 ml [ 18.00 - 58.00 ] LVOT VTI 22.90 cm LA Volume Index 30 cc/m2 [ 16 - 28 ] PV Peak Raghu 1.16 m/s [ 0.40 - 0.80 ] RA Volume 46.02 ml TR Peak Raghu 2.55 m/s [ 1.00 - 2.80 ] TR Peak PG 26 mmHg RV S` 12.79 mmHg Tapse 2.34 cm [ 1.71 - 5.00 ] 2D/MM Value Range Doppler Value Range - FINDINGS: Interpretation Site: Exam was interpreted at home. Left Ventricle: Normal left ventricular size. Mild concentric left ventricular hypertrophy. Left ventricular systolic function at the lower limit of normal. Impaired diastolic relaxation Grade I. Increased left heart filling pressures based on elevated E/E`. Ejection fraction is measured at 50 %. Global Longitudinal Strain is -14 %. Right Ventricle: Normal right ventricular size. Normal right ventricular systolic function. Left Atrium: There is mild enlargement of left atrium. Right Atrium: Right atrium within upper limits of normal. Atrial Septum: Normal atrial septum. Mitral Valve: Mitral valve leaflets appear mildly thickened. Mild mitral valve regurgitation. Aortic Valve: Moderate aortic stenosis. Peak Velocity of 3.00 m/s. Mean gradient of 22.0 mmHg. Valve area of 1.1 cm2. Aortic cusps appear mildly calcified. Mild aortic valve regurgitation. Tricuspid Valve: Normal appearance of the tricuspid valve. Right ventricular systolic pressure could not be estimated due to inadequate visualization of the tricuspid regurgitation jet. Pulmonic Valve: Pulmonic valve not well visualized. Mild pulmonic regurgitation. Pericardium: There is an anterior echo free space consistent with epicardial fat pad. Aorta: Sinus of Valsalva 3.8 cm. Ascending aorta is mildly dilated. Ascending Aorta 4.0 cm. Mild aortic root calcification. IVC: Normal size and normal respiratory collapse consistent with normal right atrial pressure (<5 mmHg). CONCLUSIONS: Normal left ventricular size. Mild left ventricular hypertrophy. Left ventricular systolic function at the lower limit of normal. Impaired diastolic relaxation Grade I. Increased left heart filling pressures based on elevated E/E`. Ejection fraction is measured at 50 %. Global Longitudinal Strain is -14 %. Normal right ventricular size and systolic function. Mild enlargement of left atrium. Mitral valve leaflets appear mildly thickened. Mild mitral valve regurgitation. Aortic valve appears calcified with restricted leaflet mobility. Moderate aortic stenosis. Peak Velocity of 3.00 m/s. Mean gradient of 22.0 mmHg. Valve area of 1.1 cm2. DVI 0.30. Mild aortic valve regurgitation. Right ventricular systolic pressure could not be estimated due to inadequate visualization of the tricuspid regurgitation jet. Mild pulmonic regurgitation. Electronically Signed By: Kenney Subramanian MD, [facility] 11/04/2024 4:04:40 PM CDT Procedure Note Kenney Subramanian MD - 11/04/2024 [facility] Cardiology [address] [facility] [address] [id number] [address] [facility] [address], [place] [address] P:[phone] P:[phone] Echocardiographic Report Patient Name: ALFREDO KIM F : 1945 Study Date: 11/04/2024 9:22:22 AM Gender: M Housekeeper Caregiver: Sarah Jimenez)(CT), [facility] [place] Location: [facility] Provider: KENNEY SUBRAMANIAN Height(Cm): 190 BSA: 2.24 Weight(Kg): 95.3 Heart Rate: 64 BP: 122 / 80 Quality: Good Order Provider: KENNEY SUBRAMANIAN PROCEDURES: Echocardiographic Report: Transthoracic echocardiogram with complete 2D, M-Mode, and color Dopplerexamination. With Strain Analysis. INDICATIONS: I35.0 Nonrheumatic aortic (valve) stenosis. MEASUREMENTS: 2D/MM Value Range Doppler ValueRange EF Mod BP 50 % [ 52 - 72 ] LIYA Vmax 1.21cm2 [ 2.00 - 4.00 ] LV GLS -13.77 % AV Mean PG 22mmHg LVIDd 2D 4.59 cm [ 4.20 - 5.80 ] AV Peak Raghu 3.03m/s [ 1.00 - 1.70 ] LVIDs 2D 3.45 cm [ 2.50 - 4.00 ] AV Peak PG 37mmHg LVPWd 2D 0.97 cm [ 0.60 - 1.00 ] AV VTI 70.92cm IVSd 2D 1.02 cm [ 0.60 - 1.00 ] LVOT Diam 2.14cm [ 1.70 - 2.10 ] AoR Diam 2D 3.78 cm [ 3.10 - 3.70 ] LVOT Peak Raghu 1.02m/s [ 0.70 - 1.10 ] LA Volume 66.65 ml [ 18.00 - 58.00 ] LVOT VTI 22.90cm LA Volume Index 30 cc/m2 [ 16 - 28 ] PV Peak Raghu 1.16m/s [ 0.40 - 0.80 ] RA Volume 46.02 ml TR Peak Raghu 2.55m/s [ 1.00 - 2.80 ] TR Peak PG 26 mmHg RV S` 12.79 mmHg Tapse 2.34 cm [ 1.71 - 5.00 ] 2D/MM Value Range Doppler ValueRange - FINDINGS: Interpretation Site: Exam was interpreted at home. Left Ventricle: Normal left ventricular size. Mild concentric left ventricularhypertrophy. Left ventricular systolic function at the lower limit of normal. Impaireddiastolic relaxation Grade I. Increased left heart filling pressures based on elevated E/E`.Ejection fraction is measured at 50 %. Global Longitudinal Strain is -14 %. Right Ventricle: Normal right ventricular size. Normal right ventricular systolicfunction. Left Atrium: There is mild enlargement of left atrium. Right Atrium: Right atrium within upper limits of normal. Atrial Septum: Normal atrial septum. Mitral Valve: Mitral valve leaflets appear mildly thickened. Mild mitral valveregurgitation. Aortic Valve: Moderate aortic stenosis. Peak Velocity of 3.00 m/s. Mean gradient of 22.0mmHg. Valve area of 1.1 cm2. Aortic cusps appear mildly calcified. Mild aortic valveregurgitation. Tricuspid Valve: Normal appearance of the tricuspid valve. Right ventricular systolicpressure could not be estimated due to inadequate visualization of the tricuspidregurgitation jet. Pulmonic Valve: Pulmonic valve not well visualized. Mild pulmonic regurgitation. Pericardium: There is an anterior echo free space consistent with epicardial fat pad. Aorta: Sinus of Valsalva 3.8 cm. Ascending aorta is mildly dilated. AscendingAorta 4.0 cm. Mild aortic root calcification. IVC: Normal size and normal respiratory collapse consistent with normal rightatrial pressure (<5 mmHg). CONCLUSIONS: Normal left ventricular size. Mild left ventricular hypertrophy. Leftventricular systolic function at the lower limit of normal. Impaired diastolicrelaxation Grade I. Increased left heart filling pressures based on elevated E/E`. Ejectionfraction is measured at 50 %. Global Longitudinal Strain is -14 %. Normal right ventricular size and systolic function. Mild enlargement of left atrium. Mitral valve leaflets appear mildly thickened. Mild mitral valveregurgitation. Aortic valve appears calcified with restricted leaflet mobility. Moderateaortic stenosis. Peak Velocity of 3.00 m/s. Mean gradient of 22.0 mmHg. Valvearea of 1.1 cm2. DVI 0.30. Mild aortic valve regurgitation. Right ventricular systolic pressure could not be estimated due toinadequate visualization of the tricuspid regurgitation jet. Mild pulmonicregurgitation. Electronically Signed By: Kenney Subramanian MD, [facility] 11/04/2024 4:04:40 PM CDT Kenney Subramanian MD CV ECHO PROCEDURES Final Result from Last 3 Months Insurance MEDICARE [facility] MEDICARE [employer] [place] Care Teams Internet Marketing Manager Relationship Specialty Start Date End Date Katherin Collazo MD [address] [place] [address] PCP - General Family Medicine 04/10/23
--- OUTSIDE RECORDS SUMMARY | 2024-11-11 10:43 | XMS_ITS | Encounter Summary ---
Author Organization [facility] Address [facility] [place] [address] Care Team Providers Care Yarn Twister Name Role Phone Imtiaz Perez DO Primary Care Provider [phone] Katherin Collazo MD Primary Care Provider [phone] Kenney Ferrell MD Unavailable Encounter Details Date Type Department Care Team (Late st Contact Info) Description 07/21/2021 Prep for Procedure [facility] Services [address] [place] [address] [place] [address] [facility] [address] [place] [address] Social History Tobacco Use Types Packs/Day Years Used Date Smoking Tobacco: Former Pipe Smokeless Tobacco: Never Alcohol Use Standard Drinks/Week Comments Not Currently 0 (1 standard drink = 0.6 oz pur e alcohol) PHQ-2 Answer Date Recorded PHQ-2 Score - If the patient scores above 3, please move on to questions 3-9 0 06/26/2021 Sex and Gender Information Value Date Recorded Sex Assigned at Male 05/05/2024 10:30 AM LIGHT BULB ASSEMBLER Legal Sex Male 2:31 PM CDT Gender Identity Not on file Sexual Orientation Not on file COVID-19 Exposure Response Date Recorded In the last 10 days, have yo u been in contact with someone who was confirmed or suspected to have Coronavirus/COVID-19? No / Unsure 07/13/2021 9:00 AM CDT documented as of this encounter Plan of Treatment Upcoming Encounters Date Type Department Care Team (Late st Contact Info) Description 11/17/2024 8:00 AM CDT Office Visit [facility] Family Medicine [facility] [address] [place] [phone] Katherin Collazo MD [address] [place] [address] documented as of this encounter Visit Diagnoses Diagnosis Preop testing- Primary Preoperative examination, unspecified documented in this encounter Additional Health Concerns Assessment Noted Time PHQ-9 Depression Total Score: 0 06/27/19 2:50 PM LIGHT BULB ASSEMBLER documented as of this encounter Care Teams Yarn Twister Relationship Specialty Start Date End Date Imtiaz Perez DO PCP - General FAMILY PRACTICE 01/18/20 04/10/22 Katherin Collazo MD [address] [place] [address] PCP - General FAMILY PRACTICE 05/23/22 Kenney Ferrell MD [address] [address] CARDIOVASCULAR DISEASE 08/28/22 documented as of this encounter
--- OUTSIDE RECORDS SUMMARY | 2024-11-11 10:43 | XMS_ITS | Clinical Summary ---
Author Organization [facility] Address [address] [place] [address] Care Team Providers Care Stock Handler Name Role Phone Katherin Collazo MD Primary Care Provider [phone] Kenney Ferrell MD Unavailable Allergies Active Allergy Reactions Criticality Noted Date Comments Penicillins Joint Pain 01/18/2020 Medications aspirin EC 81 MG tablet 1 tablet (81 mg total). 5 Active tamsulosin (FLOMAX) 0.4 MG Cap Take 1 capsule (0.4 mg total) by mouth daily. 4 Active Apoaequorin (PREVAGEN) 10 MG Cap Take 1 capsule by mouth daily. Active prednisoLONE acetate (PRED FORTE) 1 % ophthalmic suspension PLACE 1 DROP IN BOTH EYES TWICE DAILY 4 Active lisinopril (PRINIVIL) 40 MG tabletIndications :Primary hypertension Take 1 tablet (40 mg total) by mouth daily. 90 tablet 1 5 Active omeprazole (PRILOSEC) 40 MG capsuleIndication s:Gastroesophagea l reflux disease without esophagitis Take 1 capsule (40 mg total) by mouth daily. 90 capsule 1 5 Active carvedilol (COREG) 6.25 MG tabletIndications :Primary hypertension Take 1 tablet (6.25 mg total) by mouth 2 (two) times daily. 180 tablet 1 5 Active doxazosin (CARDURA) 8 MG tabletIndications :Benign prostatic hyperplasia without lower urinary tract symptoms Take 1 tablet (8 mg total) by mouth daily. 90 tablet 1 5 Active atorvastatin (LIPITOR) 80 MG tabletIndications :Primary hypertension Take 1 tablet (80 mg total) by mouth daily. 90 tablet 1 5 Active spironolactone (ALDACTONE) 25 MG tabletIndications :Pedal edema TAKE 1 TABLET (25 MG TOTAL) BY MOUTH DAILY. 90 tablet 5 Active terbinafine (LAMISIL) 250 MG tabletIndications :Onychomycosis TAKE 1 TABLET BY MOUTH EVERY DAY 90 tablet 5 Active Active Problems Problem Noted Date Diagnosed Date Upper respiratory tract infection, unspecified t ype 06/07/2024 S/P angioplasty with stent 08/28/2022 Unilateral inguinal hernia, without obstruction or gangrene, not specified as recurrent 07/20/2021 Overview (07/20/2021): Added automatically from request for surgery [id number] Benign prostatic hyperplasia with nocturia 01/17 Mixed hyperlipidemia 01/18/2020 Gastroesophageal reflux disease without esophagi tis 01/18/2020 Grief reaction 01/18/2020 Heart attack ([facility]) 02/19/2015 Overview (01/18/2020): 3 stents placed Essential hypertension CAD (coronary artery disease) Kidney stones Hyperlipemia BPH (benign prostatic hyperplasia) Immunizations Immunization Administration Dates Next Due Fluzone High Dose - >Age 65 (Prefilled Syringe) 12/23/2023,03/03/2021,02/16/2020 Influenza Adult (Generic) 02/09/2019 MODERNA COVID-19 (12+), MRNA , LNP-S, PF, 50 MCG/0.5 ML (SPIKEVAX) 12/23/2023 PFIZER COVID-19 (ORIGINAL FO RMULATION, PURPLE CAP) mRNA, LNP-S, PF, 30 MCG/0.3 ML DOSE 06/26/2020,06/05/2020 Family History Medical History Relation Comments Kidney Stones Brother Early Father 48 years old Heart Attack Father Heart Disease Father Kidney Disease Father Kidney Stones Father Stroke Father Cancer Mother Ovarian Cancer Mother Relation Status Comments Brother Father (Age 48) Mother (Age 57) Ovarian Cancer Social History Tobacco Use Types Packs/Day Years Used Date Smoking Tobacco: Former Pipe Smokeless Tobacco: Never Tobacco Cessation:Counseling Given: No Alcohol Use Standard Drinks/Week Comments Never 0 (1 standard drink = 0.6 oz pur e alcohol) PHQ-2 Answer Date Recorded Patient Health Questionnaire-2 Score 0 05/19/2024 Sex and Gender Information Value Date Recorded Sex Assigned at Male 05/05/2024 10:30 AM 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 Legal Sex Male 2:31 PM CDT Gender Identity Not on file Sexual Orientation Not on file Last Filed Vital Signs Vital Sign Reading Time Taken Comments Blood Pressure 134/80 05/19/2024 8:11 AM 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 Pulse 70 05/19/2024 8:11 AM 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 Temperature 36.3 C (97.3 F) 05/19/2024 8:11 AM 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 Respiratory Rate 16 05/19/2024 8:11 AM 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 Oxygen Saturation 98% 05/19/2024 8:11 AM 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 Inhaled Oxygen Concentration - - Weight 97.6 kg (215 lb 3.2 oz) 05/19/2024 8:11 A M 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 Height 190.5 cm (6' 3) 04/29/2024 9:06 AM 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 Body Mass Index 26.9 04/29/2024 9:06 AM 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 Plan of Treatment Upcoming Encounters Date Type Department Care Team (Late st Contact Info) Description 11/17/2024 8:00 AM CDT Office Visit [facility] Family Medicine [facility] [address] [place] [address] Katherin Collazo MD [address] [place] [address] Health Maintenance Due Date Last Done Comments DTaP, Tdap and Td Vaccines (1 - Tdap) 1964 Pneumococcal Vaccine: 50+ Years (1 of 2 - PCV) 1965 Zoster Vaccines (1 of 2) 02/11/1996 Annual Medicare Wellness Visit 2011 RSV Immunization or 60+ Years (1 - 1-dose 75+ series) 2021 COVID-19 Vaccine ( - season) 2024 12/23/2023, 02/08/2021, 06/26/2020, Additional history exists Hepatitis C Completed 07/09/2022 PHQ-2 (Physician [place]) Completed 05/19/2024 Meningococcal B Vaccine Aged Out No l onger eligible based on patient's age to complete this topic Meningococcal Vaccine Aged Out No naomie clemente eligible based on patient's age to complete this topic RSV Immunizations Under 20 Months Aged Out No longer eligible based on patient's age to complete this topic Medical Devices Implanted Type Area Dry Cell Assembly Supervisor Device Identifier Shelf Expiration Date Model / Serial / Lot Plug Hernia Light Mesh Xlarge - [id number] Implanted:Qty : 1 on 08/03/2021 by Greyson Schwab MD at [facility] Mesh Right: Abdomen [employer] [id number] 12/17/2025 [id number] / / [id number] Procedures Procedure Name Priority Date/Time Associated Diagnosis Comments HEPATITIS C ANTIBODY Routine 07/09/2022 12:29 PM CDT Encounter for hepatitis C screening test for low risk patient from Last 3 Months or Most Recently Relevant to Health Maintenance Results * HEPATITIS C ANTIBODY (07/09/2022 12:29 PM CDT) HEPATITIS C AB NON-REACTI VE NON-REACT JED 07/10/2022 7:28 PM CDT [facility] Comment: ANTIBODIES TO HCV NOT DETECTED. DOES NOT EXCLUDE THE POSSIBILITY OF EXPOSURE TO HCV. 07/09/2022 12:2 9 PM CDT Katherin Collazo MD LABORATORY Final Result [facility] [address] [place] [address], [id number] from Last 3 Months or Most Recently Relevant to Health Maintenance Insurance MEDICARE [facility] Care Teams Stock Handler Relationship Specialty Start Date End Date Katherin Collazo MD [address] [place] [address] PCP - General FAMILY PRACTICE 05/23/22 Kenney Ferrell MD [address] [facility] [address] [place] [id number] CARDIOVASCULAR DISEASE 08/28/22
--- OUTSIDE RECORDS SUMMARY | 2024-11-11 10:43 | XMS_ITS | Encounter Summary ---
Author Organization [facility] Healthcare Address [address] [place] [address] Care Team Providers Care Lead Designer Name Role Phone Katherin Collazo MD Primary Care Provider [phone] Reason for Referral * Procedure (Routine) - Authorized Specialty Diagnoses / Procedures Referred By Contac t Referred To Contact Cardiology Diagnoses Coronary artery disease involving [place] coronary artery of [place] heart with unstable angina pectoris (HCC) Kenney Ferrell MD [address] [facility] [address] [facility], [address] [place] [address] Phone: tel: fax: [facility] Cardiology [address] [place] [phone] Phone: tel: fax: Referral ID Status Reason Start Date Expiration Date Visits Requested Visits Authorized [id number] Authorized Specialty Services Required 11/11/2024 12/11/2025 1 1 Question Answer Please select the performing region: [facility] [[id number]] Please select the performing department: [facility] [[id number]] # of visits: 1 Comments PROCEDURE/TEST ORDERED:[facility] LOCATION: [facility] DATE OF SERVICE:11/16 INSURANCE:Medicare/[facility] DIAGNOSIS:CP, CAD ORDERING PROVIDER:Mariaelena ADDITIONAL DETAILS: Encounter Details Date Type Department Care Team (Late st Contact Info) Description 11/11/2024 Telephone [facility] Cardiology [address] [place] [phone] Kenney Ferrell MD [address], [address] [address] Social History Tobacco Use Types Packs/Day Years Used Date Smoking Tobacco: Never Smokeless Tobacco: Never Alcohol Use Standard Drinks/Week Comments No 0 (1 standard drink = 0.6 oz pur e alcohol) Sex and Gender Information Value Date Recorded Sex Assigned at Not on file Legal 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 Reviewed instructions with ptand he verbalized understanding. Pt will have labs drawn today at . documented in this encounter Plan of Treatment Upcoming Encounters Date Type Department Care Team (Latest Contact Info) Description 11/16/2024 2:00 PM CDT Hospital Encounter [facility] Cardiac Catheterization Lab [address] [place] [address] Kenney Ferrell MD [address] [facility] [address], [address] [address] Coronary artery disease involving [place] coronary artery of [place] heart with unstable angina pectoris (HCC); History of ST elevation myocardial infarction 11/16/2024 2:00 PM CDT - 11/16/2024 3:30 PM CDT Surgery [facility] Cardiac Catheterization Lab [address] [place] [address] Kenney Ferrell MD [address], [place] [address] [place] [address] LEFT HEART CATHETERIZATION WITH CORONARY ANGIOGRAPHY AND WITH OR WITHOUT LEFT VENTRICULOGRAM [address] Scheduled Orders Name Type Priority Associated Diagnoses Orde r Schedule Comprehensive metabolic panel Lab Routine Coronary artery disease involving [place] coronary artery of [place] heart with unstable angina pectoris (HCC) Expected: 11/14/2024, Expires: 11/11/2025 CBC with auto differential Lab Routine Coronary artery disease involving [place] coronary artery of [place] heart with unstable angina pectoris (HCC) Expected: 11/14/2024, Expires: 11/11/2025 Scheduled Referrals Name Type Priority Associated Diagnoses Order Schedule Ambulatory referral to Cardiology Outpatient Referral Routine Coronary artery disease involving [place] coronary artery of [place] heart with unstable angina pectoris (HCC) Expected: 11/18/2024 (Approximate), Expires: 11/11/2025 documented as of this encounter Visit Diagnoses Diagnosis Coronary artery disease involving [place] coronary artery of [place] heart with unstable angina pectoris (HCC)- Primary Coronary artery disease involving [place] coronary artery of [place] heart with unstable angina pectoris (HCC) History of ST elevation myocardial infarction Coronary artery disease involving [place] coronary artery of [place] heart with unstable angina pectoris (HCC) History of ST elevation myocardial infarction documented in this encounter Care Teams Lead Designer Relationship Specialty Start Date End Date Katherin Collazo MD [facility] [place] [address] PCP - General Family Medicine 04/10/23 documented as of this encounter
--- OUTSIDE RECORDS SUMMARY | 2024-11-11 10:43 | XMS_ITS | Encounter Summary ---
Author Organization [facility] Healthcare Address [address] [place] [address] Care Team Providers Care Retail Account Executive Name Role Phone Katherin Collazo MD Primary Care Provider [phone] Encounter Details Date Type Department Care Team (Latest Contact Info) Description 11/08/2024 Results Follow-Up [facility] Cardiology [address] 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 Gender Identity Not on file Sexual Orientation Not on file documented as of this encounter Plan of Treatment Upcoming Encounters Date Type Department Care Team (Latest Contact Info) Description 11/16/2024 2:00 PM CDT Hospital Encounter [facility] Cardiac Catheterization Lab [address] [place] [address] Kenney Ferrell MD [address], [address] [place] [address] Coronary artery disease involving [place] coronary artery of [place] heart with unstable angina pectoris (HCC); History of ST elevation myocardial infarction 11/16/2024 2:00 PM CDT - 11/16/2024 3:30 PM CDT Surgery [facility] Cardiac Catheterization Lab [address] [place] [address] Kenney Ferrell MD [address], [address] [place] [address] LEFT HEART CATHETERIZATION WITH CORONARY ANGIOGRAPHY AND WITH OR WITHOUT LEFT VENTRICULOGRAM [id number] documented as of this encounter Visit Diagnoses Not on filedocumented in this encounter Care Teams Retail Account Executive Relationship Specialty Start Date End Date Katherin Collazo MD [address] [place] [address] PCP - General Family Medicine 04/10/23 documented as of this encounter
--- OUTSIDE RECORDS SUMMARY | 2024-11-11 10:43 | XMS_ITS | Encounter Summary ---
Author Organization [facility] Healthcare Address [address] [place] [address] Care Team Providers Care Supervisor Dog License Officer Name Role Phone Katherin Collazo MD Primary Care Provider Reason for Visit * Reason Comments Coronary Artery Disease Aortic Stenosis Hypertension 6-8 mo f/u Encounter Details Date Type Department Care Team (Late st Contact Info) Description 11/11/2024 9:45 AM CDT Office Visit [facility] Medical [facility] Cardiology [address] [place] [address] Kenney Ferrell MD [address] [facility] [address] [facility], [address] [place] [address] Coronary artery disease involving [place] coronary artery of [place] heart with unstable angina pectoris (HCC) (Primary Dx); History of ST elevation myocardial infarction; Status post angioplasty with stent; Moderate aortic stenosis; Essential hypertension Social History Tobacco Use Types Packs/Day Years Used Date Smoking Tobacco: Never Smokeless Tobacco: Never Alcohol Use Standard Drinks/Week Comments No 0 (1 standard drink = 0.6 oz pur e alcohol) Sex and Gender Information Value Date Recorded Sex Assigned at Not on file 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 Gender Identity Not on file Sexual Orientation Not on file documented as of this encounter Last Filed Vital Signs Vital Sign Reading Time Taken Comments Blood Pressure 124/80 11/11/2024 9:43 AM CDT Pulse 58 11/11/2024 9:43 AM CDT Temperature - - Respiratory Rate - - Oxygen Saturation 98% 11/11/2024 9:43 AM CDT Inhaled Oxygen Concentration - - Weight 97.1 kg (214 lb) 11/11/2024 9:43 AM CDT Height 190.5 cm (6' 3) 11/11/2024 9:43 AM CDT Body Mass Index 26.75 11/11/2024 9:43 AM CDT documented in this encounter Ordered Prescriptions Prescription Sig Dispense Quantity Refills Last Filled Start Date End Date nitroglycerin (NITROSTAT) 0.[address] 1 tablet (0.4 mg total) under the tongue every 5 (five) minutes as needed for chest pain May repeat dose q 5 min, up to 3 doses total 90 tablet 3 11/11/2024 documented in this encounter Plan of Treatment Upcoming Encounters Date Type Department Care Team (Latest Contact Info) Description 11/16/2024 2:00 PM CDT Hospital Encounter [facility] Cardiac Catheterization Lab [address] [place] [address] Kenney Ferrell MD [address], [address] [address] Coronary artery disease involving [place] coronary artery of [place] heart with unstable angina pectoris (HCC); History of ST elevation myocardial infarction 11/16/2024 2:00 PM CDT - 11/16/2024 3:30 PM CDT Surgery [facility] Cardiac Catheterization Lab [address] [place] [address] Kenney Ferrell MD [address], [address] [address] LEFT HEART CATHETERIZATION WITH CORONARY ANGIOGRAPHY AND WITH OR WITHOUT LEFT VENTRICULOGRAM [address] documented as of this encounter Visit Diagnoses Diagnosis Coronary artery disease involving [place] coronary artery of [place] heart with unstable angina pectoris (HCC)- Primary History of ST elevation myocardial infarction Status post angioplasty with stent Postsurgical percutaneous transluminal coronary angioplasty status Moderate aortic stenosis Aortic valve disorders Essential hypertension Unspecified essential hypertension Coronary artery disease involving [place] coronary artery of [place] heart with unstable angina pectoris (HCC) History of ST elevation myocardial infarction Coronary artery disease involving [place] coronary artery of [place] heart with unstable angina pectoris (HCC) History of ST elevation myocardial infarction documented in this encounter Care Teams Supervisor Dog License Officer Relationship Specialty Start Date End Date Katherin Collazo MD [address] [place] [address] PCP - General Family Medicine 04/10/23 documented as of this encounter
--- OUTSIDE RECORDS SUMMARY | 2024-11-11 10:43 | XMS_ITS | Clinical Summary ---
Author Organization [facility] [address] [facility] [address] Address [address] [place] [address] Care Team Providers Care Steward/Stewardess Bath Name Role Phone Katherin Collazo MD Primary Care Provider Allergies Active Allergy Reactions Criticality Noted Date [...] Diagnosed Date Coronary artery disease invo lving [place] coronary artery of [place] heart with unstable angina pectoris 11/11/[address] elevation myocardial infarction Encounters Date Type Department Care Team Description 11/11/2024 9:45 AM CDT Office Visit [facility] Cardiology [address] [place] [address] [place] [phone] Kenney Subramanian MD Coronary artery disease involving [place] coronary artery of [place] heart with unstable angina pectoris (HCC) (Primary Dx); History of ST elevation myocardial infarction; Status post angioplasty with stent; Moderate aortic stenosis; Essential hypertension 11/11/2024 Telephone [facility] Cardiology [address] [place] [address] [place] [phone] Kenney Subramanian MD 11/08/2024 Results Follow-Up [facility] Cardiology [facility] [address] [place] [phone] Kenney Subramanian MD Transthoracic Echo (TTE) Complete W Doppler/CF 11/04/2024 9:15 AM CDT Ancillary Procedure [facility] Cardiology [address] [place] [address] [place] [phone] Moderate aortic stenosis 11/03/2024 Telephone [facility] Cardiology [address] [place] [address] [place] [phone] Kenney Subramanian MD from Last 3 Months Medical History Medical History Date Comments Hx Other Medical Inferoposterior STEMI Hx Other Medical HLP Hypertension Hypertension Family History Medical History Relation Name Comments Other Brother 2 Alive and well; Heart attack Father Myocardial infa rction; Cause of : Myocardial infarction Ovarian cancer Mother Cancer, ovari an; Cause of : Cancer, ovarian Other Sister 2 Alive and well; Relation Name Status Comments Brother 1 Alive Brother 2 Father (Age 48) Mother Sister 1 Alive Sister 2 Social History Tobacco Use Types Packs/Day Years Used Date Smoking Tobacco: Never Smokeless Tobacco: Never Tobacco Cessation:Counseling Given: Not Answered Alcohol Use Standard Drinks/Week Comments No 0 (1 standard drink = 0.6 oz pur e alcohol) Sex and Gender Information Value Date Recorded Sex Assigned at Not on file Legal Sex Male 3:52 AM 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 Gender Identity Not on file Sexual Orientation Not on file Obstetrics History Last Filed Vital Signs Vital Sign Reading Time Taken Comments Blood Pressure 124/80 11/11/2024 9:43 AM CDT Pulse 58 11/11/2024 9:43 AM CDT Temperature - - Respiratory Rate 15 02/24/2020 9:11 AM SEWER Oxygen Saturation 98% 11/11/2024 9:43 AM CDT Inhaled Oxygen Concentration - - Weight 97.1 kg (214 lb) 11/11/2024 9:43 AM CDT Height 190.5 cm (6' 3) 11/11/2024 9:43 AM CDT Body Mass Index 26.75 11/11/2024 9:43 AM CDT Plan of Treatment Upcoming Encounters Date Type Department Care Team (Latest Contact Info) Description 11/16/2024 2:00 PM CDT Hospital Encounter [facility] Cardiac Catheterization Lab [address] [place] [address] Kenney Subramanian MD [address] [place] [address], [place] [place] [address] Coronary artery disease involving [place] coronary artery of [place] heart with unstable angina pectoris (HCC); History of ST elevation myocardial infarction 11/16/2024 2:00 PM CDT - 11/16/2024 3:30 PM CDT Surgery [facility] Cardiac Catheterization Lab [address] [place] [address] Kenney Subramanian MD [address] [place] [address], [place] [place] [address] LEFT HEART CATHETERIZATION WITH CORONARY ANGIOGRAPHY AND WITH OR WITHOUT LEFT VENTRICULOGRAM [address] Health Maintenance Due Date Last Done Comments Depression Screening 1945 Hepatitis C Screening 1945 DTaP/Tdap/Td Vaccine (1 - Tdap) 1957 Hepatitis B Screening 02/11/1964 Pneumococcal vaccine 65+ (1 of 1 - PCV) 02/11/1996 Zoster Vaccine (1 of 2) 02/11/1996 Well Visit 65+ 2011 Fall Risk Assessment 02/23/2021 02/24/2020 Influenza Vaccine (#1) 2024 02/09/2019 Procedures Procedure Name Priority Date/Time Associated Diagnosis Comments TRANSTHORACIC ECHO (TTE) COMPLETE W DOPPLER/CF WO CONTRAST Routine 11/04/2024 10:39 AM CDT Moderate aortic stenosis from Last 3 Months Results * TRANSTHORACIC ECHO (TTE) COMPLETE W DOPPLER/CF WO CONTRAST (11/04/2024 10:39 AM CDT) EF Mod BP 50 % CONS SCIMAGE Anatomical Region Laterality Modality Ultrasound 11/04/2024 9:22 AM CDT Narrative 11/04/2024 4:05 PM CDT [facility] Medical [facility] Cardiology [address] [facility] [address] [address] [address] [address] [facility] [address] [place], [place] [address] P:[phone] P:[phone] Echocardiographic Report Patient Name: ALFREDO KIM F : 1945 Study Date: 11/04/2024 9:22:22 AM Gender: M Assembler Camper: Sarah [place]enez)(MS), [facility] Location: [place] Ref Provider: KENNEY SUBRAMANIAN Height(Cm): 190 BSA: 2.24 [...] regurgitation. Electronically Signed By: Kenney Subramanian MD, [facility] 11/04/2024 4:04:40 PM CDT Procedure Note Kenney Subramanian MD - 11/04/2024 [facility] Medical [facility] Cardiology [address] [facility] [place] [address] [address] [address] [facility] [address] [place], [place] [address] P:[phone] P:[phone] Echocardiographic Report Patient Name: ALFREDO KIM F : 1945 Study Date: 11/04/2024 9:22:22 AM Gender: M Assembler Camper: Sarah Angel (Radha)([place]), [facility] Location: [facility] Provider: KENNEY SUBRAMANIAN Height(Cm): 190 [...] pulmonicregurgitation. Electronically Signed By: Kenney Subramanian MD, [facility] 11/04/2024 4:04:40 PM CDT Kenney Subramanian MD CV ECHO PROCEDURES Final Result from Last 3 Months Insurance MEDICARE [facility] MEDICARE [facility] Care Teams Steward/Stewardess Bath Relationship Specialty Start Date End Date Katherin Collazo MD [address] [place] [address] PCP - General Family Medicine 04/10/23
--- OUTSIDE RECORDS SUMMARY | 2024-11-11 10:44 | XMS_ITS | Encounter Summary ---
Author Organization [facility] Address [address] [place] [address] Care Team Providers Care Repair Armature Winder Helper Name Role Phone Imtiaz Perez DO Primary Care Provider [phone] Katherin Collazo MD Primary Care Provider [phone] Kenney Ferrell MD Unavailable Encounter Details Date Type Department Care Team (Late st Contact Info) Description 07/31/2021 Prep for Procedure [facility] [address] [place] [address] [place] [address] [facility] [address] [place] [address] Social History Tobacco Use Types [...] Sex Assigned at Male 05/05/2024 10:30 AM 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 No / Unsure 08/03/2021 9:15 AM CDT documented as of this encounter Functional Status * Calculated C-SSRS Risk Score (Lifetime/Recent) Answer Date of Assessment Author Status No Risk Indicated 08/03/2021 9:39 AM CDT Me barak Bauer RN Active * Locke Suicide Severity Rating Scale (Screener/Recent Self-Report) Question Answer Date of Assessment Author Status 1. Wish to be (Past 1 Month) No 08/03/2021 9:39 AM FABIANAT Law Bauer RN Active 2. Non-Specific Active Suicidal Thoughts (Past 1 Month) No 08/03/2021 9:39 AM FABIANAT Law Bauer RN Active 6. Suicidal Behavior (Lifetime) No 08/03/2021 9:39 AM CDT Law Bauer RN Active documented as of this encounter Plan of Treatment Upcoming Encounters Date Type Department Care Team (Late st Contact Info) Description 11/17/2024 8:00 AM CDT Office Visit [facility] Medical [facility] Family Medicine [facility] [address] [place] [address] Katherin Collazo MD [address] [place] [address] documented as of this encounter Results * MRSA SCREENING (07/31/2021 2:20 PM CDT) SPEC DESCRIPTION NASAL 07/31/2021 2:20 PM CDT [facility] SPECIAL REQUESTS NO SPECIAL REQUEST 07/31/2021 2:20 PM CDT [facility] CULTURE RESULT NO METHICILLIN RESISTANT STAPHYLOCOCCUS AUREUS ISOLATED 08/01/2021 2:10 PM CDT [facility] SPECIMEN FROM INTERNAL NOSE / Unknown 07/31/2021 2:20 PM CDT 07/31/2021 2:21 PM CDT us Greyson Schwab MD MICROBIOLOGY - GENERAL ORDERABLE S Final Result [facility] [address] [place] [id number], documented in this encounter Visit Diagnoses Diagnosis Preop examination- Primary Preoperative examination, unspecified documented in this encounter Additional Health Concerns Assessment Noted Time PHQ-9 Depression Total Score: 0 06/27/19 2:50 PM UNDERWRITING SALES REPRESENTATIVE documented as of this encounter Care Teams Repair Armature Winder Helper Relationship Specialty Start Date End Date Imtiaz Perez DO PCP - General FAMILY PRACTICE 01/18/20 04/10/22 Katherin Collazo MD [address] [place] [address] PCP - General FAMILY PRACTICE 05/23/22 Kenney Ferrell MD [address] [facility] [address] [place] [address] CARDIOVASCULAR DISEASE 08/28/22 documented as of this encounter
[2024-11-11 11:34] LABS: Hematocrit 41.2 % (42.0-52.0); Hemoglobin 13.9 g/dL (14.0-18.0); Immature Granulocyte Percent A 0.3 % (0-0.5); Lymphocytes Absolute Auto 1.02 K/mm3 (0.9-3.2); Mean Corpuscular HGB Conc 33.7 g/dl (32-36); Mean Corpuscular Hemoglobin 30.8 pg (26-34); Mean Corpuscular Volume 91.2 fl (80-100); Nucleated Red Blood Cells Absolute Auto 0.000 K/mm3 (0.0-0.012); Nucleated Red Blood Cells Perc 0.0 % (0.0-0.2); Platelet Count Result 145 k/mm3 (150-375); Red Blood Count 4.52 M/mm3 (4.6-6.20); White Blood Count 5.9 K/mm3 (4.5-10.0)
[2024-11-11 12:03] LABS: Alanine Aminotransferase 19 U/L (6-50); Albumin Level 4.3 g/dL (3.5-5.1); Alkaline Phosphatase 65 U/L (38-126); Anion Gap 6 mmol/L (4-12); Aspartate Amino Transferase 24 U/L (17-59); Bilirubin,Total 0.9 mg/dL (0.2-1.3); Blood Urea Nitrogen 16 mg/dL (9-20); Calcium 9.6 mg/dL (8.4-10.2); Carbon Dioxide 26 mmol/L (22-30); Chloride 109 mmol/L (98-107); Estimated Glomerular Filt Rate > 60; Glucose 93 mg/dL (65-110); Potassium 5.0 mmol/L (3.4-5.0); Sodium 141 mmol/L (137-145); Total Protein 7.3 g/dL (6.3-8.2)
== END 2024-11-11 10:34 | disposition home or self-care (01) ==
PROVIDERS: Visit Provider Internal Medicine Cardiovascular Disease
DX: I25.110 Atherosclerotic heart disease of native coronary artery with unstable angina pectoris (principal)
CPT/HCPCS: 36415; 80053; 85025